=== PATIENT | female | born 1965 | race Caucasian/White ===

== ENCOUNTER 2017-09-10 12:57 | Day surgery (SDC) | payer OTHER ==
[2017-09-10] MEDS ORDERED: PROPOFOL 40 ML (16:21)
== END 2017-09-10 17:44 | disposition home or self-care (01) ==
LOC: GIL 12:57
DX: Z12.11 Encounter for screening for malignant neoplasm of colon (principal); K29.50 Unspecified chronic gastritis without bleeding; K20.8 Other esophagitis; D12.0 Benign neoplasm of cecum; K64.8 Other hemorrhoids; E66.9 Obesity, unspecified; Z68.39 Body mass index [BMI] 39.0-39.9, adult
CPT/HCPCS: 43239; 88305; 88312